=== PATIENT | male | born 1930 | race Caucasian/White ===

== ENCOUNTER → 2017-03-22 | Outpatient (CLI) | payer OTHER | END | disposition home or self-care (01) | LOC: PCVCCLINIC 13:39 | PROVIDERS: ATTEND Internal Medicine Cardiovascular Disease | DX: I48.2 Chronic atrial fibrillation (principal); I25.10 Atherosclerotic heart disease of native coronary artery without angina pectoris; I10 Essential (primary) hypertension; I42.9 Cardiomyopathy, unspecified; I77.89 Other specified disorders of arteries and arterioles; E78.00 Pure hypercholesterolemia, unspecified; Z96.653 Presence of artificial knee joint, bilateral; Z79.899 Other long term (current) drug therapy; Z88.8 Allergy status to other drugs, medicaments and biological substances; I49.3 Ventricular premature depolarization | CPT/HCPCS: 80061; 93005; G0463 ==

== ENCOUNTER → 2017-04-12 | Outpatient (CLI) | payer OTHER ==
[~2017-04-12] MED LIST: REGADENOSON 0.4 MG/5 ML DISP.SYRIN. IV ONE
--- NOTE | 2017-04-12 08:31 | PCVCIMAG ---
EXAM: BILATERAL CAROTID DUPLEX INDICATION: Carotid Occlusive Disease. FINDINGS: Doppler Measurements (centimeters per second): RIGHT: Peak CCA-0, Peak ECA-42, Diastolic ICA-6, Peak ICA-43 (reversed). LEFT: Peak CCA-107, Peak ECA-146, Diastolic ICA-45, Peak ICA-200, ICA/CCA Ratio-1.9. RIGHT CAROTID: The carotid bulb has moderate plaque. There is chronic occlusion of the common carotid artery as seen on prior angiogram. There is reversed flow in the cervical internal carotid artery without evidence of significant stenosis with refilling of the external carotid artery. LEFT CAROTID: The carotid bulb has moderate plaque. The proximal internal carotid artery shows 40-50% stenosis. The common carotid artery shows no significant stenosis. The external carotid artery shows no significant stenosis. Antegrade flow in both vertebral arteries. 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 40-50% stenosis of the left internal carotid artery with moderate plaque. Given the contralateral occlusion it is likely ultrasound criteria are over estimating the stenosis. The left internal carotid artery was shown to have good patency on 2015 angiogram with only slight progression of ultrasound parameters since the prior study. LOC:[id number]
--- NOTE | 2017-04-12 17:31 | PCVCIMAG ---
APPROVED REPORT Exam: Nuclear Stress Test Indication: Dyspnea. CAD. Prior Stent. Patient Location: Out-Patient Stress Nurse: Lorraine Harley RN, LYDIA Raman Tech:Marely KulkarniMAX mclainMT Ht: 5 ft 11 in Wt: 200 lbs BSA: 2.11 m2 HR: 68 bpm BP: 181/84 mmHg BMI: 27.8 Rhythm: Atrial Fibrillation, PVC's Medical History Medical History: Atrial Fibrillation, HTN, Hyperlipidemia, CAD, PVD Medications: Pradaxa, Mevacor, Toprol XL Allergies: Lisinopril, Oxycontin Cardiac Risk Factors: Age Previous Cardiac Procedures: PCI Pretest Chest Pain Characteristics: No chest pain Exercise History: Physically active Meds Held (24 hrs): Toprol XL NM EXAM: Myocardial Perfusion REST/STRESS Imaging Protocol: Rest Tc-99m/Stress Tc-99m 1 day Resting Data Rest SPECT myocardial perfusion imaging was performed in supine position 45 minutes following the intravenous injection of 11.5 mCi of Tc-99m Sestamibi. Time of rest injection: 829 Date: 04/12/2017 Pharmacologic Stress Pharmacologic stress test was performed by injecting Regadenoson 0.4 mg IV push followed by the intravenous injection of 34.9 mCi of Tc-99m Sestamibi. Time of stress injection: 954 Date: 04/12/2017 Administration Route: IV Administration Site: Right AC Gated Stress SPECT was performed 45 minutes after stress injection. The images were gated to evaluate regional wall motion and calculate left ventricular ejection fraction. Study Quality Study: Good Study Data Post stress, the left ventricular ejection was 59%.. SSS: 12 SRS: 3 SDS: 9 TID = 1.07. Perfusion No evidence of stress induced ischemia or prior myocardial infarction. Wall Motion Normal left ventricular function with no regional wall motion abnormalities. Nuclear Conclusion No evidence of stress induced ischemia or prior myocardial infarction. Normal left ventricular function with no regional wall motion abnormalities. Post stress, the left ventricular ejection was 59%.. No change since prior study dated April 2015. Interpreted by: Sharan Bloom MD Electronically Approved: 04/12/2017 14:37:53 Stress Test Details Stress Test: Pharmacologic stress testing performed using 0.4 mg of regadenoson per 5 mL given IV over 10 seconds. Reason for pharmacologic stress test: physical limitation. HR Resting HR: 68 bpmMax Heart Rate (APMHR): 135 bpm Max HR Achieved: 83 bpmTarget HR (85% APMHR): 114 bpm % of APMHR: 61 Recovery HR: 76 bpm BP Resting BP: 181/84 mmHg Max BP: 166/82 mmHg Recovery BP: 153/73 mmHg ECG Resting ECG: Atrial Fibrillation, PVC's Stress ECG: Atrial Fibrillation, PVC's Recovery ECG: Atrial Fibrillation, PVC's Clinical Reason for Termination: Completed protocol Stress Symptoms: None Exercise duration: min 55 sec Stress ECG Conclusion ECG: Non-ischemic <Conclusion> ECG: Non-ischemic
== END | disposition home or self-care (01) ==
LOC: PCVCIMAG 07:39
PROVIDERS: ATTEND Internal Medicine Cardiovascular Disease
DX: I65.23 Occlusion and stenosis of bilateral carotid arteries (principal); I25.10 Atherosclerotic heart disease of native coronary artery without angina pectoris; I10 Essential (primary) hypertension; E78.5 Hyperlipidemia, unspecified; I49.3 Ventricular premature depolarization; I48.91 Unspecified atrial fibrillation; Z95.5 Presence of coronary angioplasty implant and graft
CPT/HCPCS: 78452; 93017; 93880; A9500; J2785

== ENCOUNTER → 2017-10-21 | Outpatient (CLI) | payer OTHER | END | disposition home or self-care (01) | LOC: PCVCCLINIC 09:30 | DX: I48.91 Unspecified atrial fibrillation (principal); I42.9 Cardiomyopathy, unspecified; I25.10 Atherosclerotic heart disease of native coronary artery without angina pectoris; I38 Endocarditis, valve unspecified; I77.9 Disorder of arteries and arterioles, unspecified; R94.31 Abnormal electrocardiogram [ECG] [EKG]; E78.00 Pure hypercholesterolemia, unspecified; R09.89 Other specified symptoms and signs involving the circulatory and respiratory systems; Z79.899 Other long term (current) drug therapy | CPT/HCPCS: 80061; 93005; G0463 ==

== ENCOUNTER → 2018-05-07 | Outpatient (CLI) | payer OTHER | END | disposition home or self-care (01) | LOC: PCVCIMAG 15:57 | DX: I08.3 Combined rheumatic disorders of mitral, aortic and tricuspid valves (principal); I65.23 Occlusion and stenosis of bilateral carotid arteries; E78.5 Hyperlipidemia, unspecified; I25.10 Atherosclerotic heart disease of native coronary artery without angina pectoris; I10 Essential (primary) hypertension; I48.91 Unspecified atrial fibrillation | CPT/HCPCS: 93306; 93880 ==

== ENCOUNTER → 2018-05-23 | Outpatient (CLI) | payer OTHER | END | disposition home or self-care (01) | LOC: PCVCCLINIC 12:44 | PROVIDERS: ATTEND Internal Medicine Cardiovascular Disease | DX: I42.9 Cardiomyopathy, unspecified (principal); I48.2 Chronic atrial fibrillation; I25.10 Atherosclerotic heart disease of native coronary artery without angina pectoris; I10 Essential (primary) hypertension; E78.00 Pure hypercholesterolemia, unspecified; I38 Endocarditis, valve unspecified; Z79.899 Other long term (current) drug therapy | CPT/HCPCS: 36415; 93005; G0463 ==

== ENCOUNTER → 2018-09-16 | Outpatient (CLI) | payer OTHER | END | disposition home or self-care (01) | LOC: PCVCCLINIC 11:46 | PROVIDERS: ATTEND Internal Medicine Cardiovascular Disease | DX: I25.10 Atherosclerotic heart disease of native coronary artery without angina pectoris (principal); I48.2 Chronic atrial fibrillation; I77.9 Disorder of arteries and arterioles, unspecified; I27.20 Pulmonary hypertension, unspecified; E78.00 Pure hypercholesterolemia, unspecified; I10 Essential (primary) hypertension; J84.9 Interstitial pulmonary disease, unspecified; G47.33 Obstructive sleep apnea (adult) (pediatric); R09.89 Other specified symptoms and signs involving the circulatory and respiratory systems | CPT/HCPCS: 93005; G0463 ==

== ENCOUNTER → 2019-04-20 | Outpatient (CLI) | payer OTHER ==
--- NOTE | 2019-04-20 13:13 | PCVCIMAG ---
APPROVED REPORT Indications Stenosis Doppler Spectral Velocity Analysis PSV / EDVPSV / EDV ECA (R) 37 / 6 cm/sECA (L) 140 / 21 cm/s dICA (R) 56 / 9 cm/sdICA (L) 98 / 25 cm/s Deven (R) 51 / 12 cm/smICA (L) 95 / 15 cm/s pICA (R) 32 / 4 cm/spICA (L) 173 / 55 cm/s Bulb (R) 27 / 6 cm/sBulb (L) 109 / 28 cm/s dCCA (R) 0 / 0 cm/sdCCA (L) 92 / 23 cm/s mCCA (R) 42 / 0 cm/smCCA (L) 105 / 21 cm/s Vert (R) 67 / 13 cm/sVert (L) 33 / 44 cm/s ICA/CCA 0.00ICA/CCA 1.88 Findings The right carotid bulb has severe plaque. The right proximal internal carotid artery shows retrograde flow The right common carotid artery is chronically occluded The left carotid bulb has moderate calcified plaque. The left proximal internal carotid artery shows 60% stenosis. The left common carotid artery shows no significant stenosis. The left external carotid artery shows <50% stenosis. Conclusion 1. Chronic right common carotid artery occlusion with retrograde right ICA flow 2. Left internal carotid artery stenosis (60%) 3. Antegrade vertebral flow. In comparison with the studies dated 2017 and 2018, no significant differences were identified.
--- NOTE | 2019-04-20 15:00 | PCVCIMAG ---
APPROVED REPORT Study performed: 04/20/2019 13:06:14 EXAM: Comprehensive 2D, Doppler, and color-flow Echocardiogram Patient Location: Echo lab Status: routine BSA: 2.10 HR: 90 bpmBP: 120/70 mmHg Rhythm: Atrial Fibrillation Other Information Study Quality: Adequate Indications Pulmonary Hypertension Atrial Fibrillation Dyspnea CAD Cardiomyopathy 2D Dimensions IVSd: 15.82 (7-11mm) LVDd: 40.12 mm PWd: 12.42 (7-11mm)Ascending Ao: 40.26 (22-36mm) LVDs: 29.53 (25-40mm) Left Atrium: 59.18 (27-40mm) Aortic Root: 36.18 mm LV Single Plane 4CH: 44.10 % LV Single Plane 2CH: 51.55 % Biplane EF: 47.8 % Volumes Left Atrial Volume (Systole) Single Plane 4CH: 185.03 mLSingle Plane 2CH: 148.46 mL LA ESV Index: 82.00 mL/m2 Aortic Valve AoV Peak Armando.: 1.40 m/s AO Peak Gr.: 7.85 mmHgLVOT Max P.42 mmHg LVOT Max V: 0.84 m/s Pulmonary Valve PV Peak Armando.: 0.90 m/sPV Peak Gr.: 3.25 mmHg Tricuspid Valve TR Peak Armando.: 3.22 m/s TR Peak Gr.: 41.64 mmHg Left Ventricle The left ventricle is normal size. There is normal LV segmental wall motion. There is normal left ventricular wall thickness. Left ventricular systolic function is mildly decreased. LVEF is 45-50%. This study is not technically sufficient to allow evaluation of the LV diastolic function due to atrial fibrillation. Right Ventricle The right ventricle is normal size. The right ventricular systolic function is normal. Atria Left atrium is severely dilated. Right atrium is severely dilated. Aortic Valve The aortic valve is normal in structure. Moderate aortic regurgitation. There is no aortic valvular stenosis. Mitral Valve Mild mitral valve prolapse. The mitral valve is normal in structure. Moderate mitral regurgitation. No evidence of mitral valve stenosis. Tricuspid Valve The tricuspid valve is normal in structure. Moderate tricuspid regurgitation with PAP of 49 mmHg. Pulmonic Valve The pulmonary valve is normal in structure. Mild pulmonic regurgitation. Great Vessels The aortic root is normal in size. 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 IVC is normal in size and collapses >50% with inspiration. Pericardium There is no pericardial effusion. There is no pleural effusion. <Conclusion> The left ventricle is normal size. Left ventricular systolic function is mildly decreased. LVEF is 45-50%. This study is not technically sufficient to allow evaluation of the LV diastolic function due to atrial fibrillation. The right ventricle is normal size. Left atrium is severely dilated. Right atrium is severely dilated. Moderate aortic regurgitation. Mild mitral valve prolapse. The mitral valve is normal in structure. Moderate mitral regurgitation. Moderate tricuspid regurgitation with PAP of 49 mmHg. The aortic root is normal in size. 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 There is no pericardial effusion.
== END | disposition home or self-care (01) ==
LOC: PCVCIMAG 12:29
PROVIDERS: ATTEND Internal Medicine Cardiovascular Disease
DX: I65.23 Occlusion and stenosis of bilateral carotid arteries (principal); I08.3 Combined rheumatic disorders of mitral, aortic and tricuspid valves; I48.91 Unspecified atrial fibrillation; R06.00 Dyspnea, unspecified; I25.10 Atherosclerotic heart disease of native coronary artery without angina pectoris; I42.9 Cardiomyopathy, unspecified
CPT/HCPCS: 93306; 93880